=== PATIENT | female | born 1985 | race Caucasian/White ===

== ENCOUNTER 2020-05-06 22:13 | Emergency (ER) | payer OTHER ==
[~2020-05-06] VITALS: Ht 170 cm; Wt 113.4 kg
[2020-05-06] MEDS ORDERED: BUPR150T24 (22:35)
[2020-05-06] MEDS ORDERED: [UNRECOGNIZED DRUG - CODE] (22:35)
[2020-05-06] MEDS ORDERED: HYDR-700 (22:35)
--- NOTE | 2020-05-06 23:41 | ED Psychosocial ---
General Chief Complaint: Psych/Social Disorder Stated Complaint: ANXIETY/CHEST PAIN Nursing Triage Note: c/o anxiety/ intermittant chest pain that started while driving. reports pain improved now. Source: patient Exam Limitations: no limitations History of Present Illness Date Seen by Provider: May 06, 2020 Time Seen by Provider: 23:30 Initial Comments Patient is a 34-year-old female who presents to the emergency department today with a chief complaint of chest discomfort and what she believes might have been a panic attack. Patient states that she was driving home from [place] to [facility] when she had onset of symptoms. She states she felt short of breath and the pain radiated across her chest and into arm. Patient states that both arms tonight became tingly and felt odd. Patient states that she has had previous panic attacks that have affected her left arm. Patient denies feeling short of breath. She was trying to get in deep breaths and had her windows down her car. She states she felt a little clammy. Patient states that symptoms started shortly after a meal this evening. Patient states that she felt like she might have been having a little reflux. She states that she did take one of her anxiety pills at the onset of symptoms. She feels much better at the time of this this dictation than she did when her symptoms were at their worst. Patient is a non-smoker, no hypertension. She states she takes medications for panic di sorder. She states she has a family history of her father having from an aortic dissection in his 40s. All other review of systems reviewed and negative except as stated. Timing/Duration: just prior to arrival Severity: mild Associated Symptoms: denies symptoms Allergies and Home Medications Allergies Coded Allergies: No Known Drug Allergies (Unverified , 05/06/20) Patient Home Medication List Home Medication List Reviewed: Yes Review of Systems Constitutional: see HPI EENTM: no symptoms reported Respiratory: no symptoms reported Cardiovascular: chest pain Gastrointestinal: nausea (Mild nausea reported) Genitourinary: no symptoms reported Musculoskeletal: no symptoms reported Skin: no symptoms reported Psychiatric/Neurological: Anxiety, Paresthesia All Other Systems Reviewed Negative Unless Noted: Yes Past Hyccbgz-Tydban-Gbuegx Hx Patient Social History Alcohol Use: Rarely Uses Smoking Status: Never a Smoker 2nd Hand Smoke Exposure: No Recent Infectious Disease Expo: No Recent Hopitalizations: No Immunizations Up To Date Tetanus Booster (TDap): Unknown Seasonal Allergies Seasonal Allergies: Yes Past Medical History Surgeries: Yes Section, Gallbladder Respiratory: No Cardiac: No Neurological: No : No Last Menstrual Period: Apr 08, 2020 Genitourinary: No Gastrointestinal: No Musculoskeletal: No Endocrine: No HEENT: No Cancer: No Psychosocial: Yes Anxiety Integumentary: No Blood Disorders: No Physical Exam Vital Signs - First Documented 05/06/20 22:26 Temp 36.8 Pulse 94 Resp 18 B/P (MAP) 127/87 (100) Pulse Ox 99 O2 Delivery Room Air Capillary Refill : Less Than 3 Seconds Height, Weight, BMI Height: '" Weight: lbs. oz. kg; 39.00 BMI Method: General Appearance: WD/WN, no apparent distress Neck: normal inspection Respiratory: lungs clear, normal breath sounds, no respiratory distress Cardiovascular: regular rate, rhythm, no murmur Gastrointestinal: normal bowel sounds, non tender, soft Extremities: non-tender, normal inspection, no pedal edema Neurologic/Psychiatric: no motor/sensory deficits, alert, normal mood/affect, oriented x 3 Appearance/Memory: appropriate appearance, appropriate insight, neat, no memory impairment Behavior/Eye Contact: cooperative, good eye contact, normal speech Thoughts/Hallucinations: normal thought pattern, no apparent hallucination Skin: normal color, warm/dry Progress/Results/Core Measures Results/Orders Vital Signs/I&O 05/06/20 22:26 Temp 36.8 Pulse 94 Resp 18 B/P (MAP) 127/87 (100) Pulse Ox 99 O2 Delivery Room Air Blood Pressure Mean: 100 Progress Progress Note : Time: 00:22 Progress Note Patient states she feels 100% better. Did obtain an EKG which shows a right bundle branch block and nonspecific ST-T wave changes in the precordium with some inverted T waves. Patient states she has had previous EKG in the past at [facility]. I have recommended that the patient follow-up with her primary care physician. She states that she is going to do this. All questions are sought and answered. Patient is stable for discharge. Initial ECG Impression Date: May 07, 2020 Initial ECG Impression Time: 00:20 Initial ECG Rate: 94 Initial ECG Rhythm: Normal Sinus Initial ECG Intervals: Normal Initial ECG Impression: Nonspecific Changes Comment Right bundle branch block, nonspecific ST-T wave changes over the precordium with flipped T waves in leads V234 and 5 Departure Impression Primary Impression: Panic attack Disposition: 01 HOME, SELF-CARE Condition: Stable Departure-Patient Inst. Decision time for Depature: 23:38 Referrals: NO,LOCAL PHYSICIAN (PCP/Family) Primary Care Physician Patient Instructions: Anxiety, Adult ED Add. Discharge Instructions: Be sure and follow-up with your primary care physician. Continue your home daily medications as previously prescribed. Return to the emergency room for any worsening symptoms, new concerns or emergent complaints. MILLER REYES MD May 06, 2020 23:41
[2020-05-07 00:25] VITALS: BP 125/78
== END 2020-05-07 00:26 | disposition home or self-care (01) ==
LOC: ER 22:19
DX: F41.0 Panic disorder [episodic paroxysmal anxiety] (principal); F41.9 Anxiety disorder, unspecified
CPT/HCPCS: 93005